=== PATIENT | female | born 1975 | race Caucasian/White ===

== ENCOUNTER 2024-10-09 17:26 | Emergency (ER) | payer BC, SELFPAY ==
[2024-10-09] VITALS (11 sets, daily range): BP systolic 133; BP diastolic 87; PULSE 54–98; RESP 18; TEMP 37.3; O2SAT 95–100; BMI 28.3
--- NOTE | 2024-10-09 19:21 | ED.NAVMDI ---
HPI - Nausea/Vomiting/Diarrhea General Date Seen: 10/09/24 <Clyde Barnes MD - Last Filed: 10/11/24 21:41> Chief complaint: Nausea/Vomiting <Clyde Barnes MD - Last Filed: 10/11/24 21:41> Stated complaint: Vomiting, diarrhea, dehydration <Clyde Barnes MD - Last Filed: 10/11/24 21:41> Time Seen by Provider: 10/09/24 19:13 <Clyde Barnes MD - Last Filed: 10/11/24 21:41> Source: patient <Clyde Barnes MD - Last Filed: 10/11/24 21:41> Mode of arrival: ambulatory <Clyde Barnes MD - Last Filed: 10/11/24 21:41> Limitations: no limitations <Clyde Barnes MD - Last Filed: 10/11/24 21:41> History of Present Illness HPI Narrative: Patient is very nice 49-year-old female who presents here with 6 days of nausea vomiting and diarrhea she has had a probably 12 episodes today of retching with vomiting, reports that she has had it least 4-5 loose stools also, no blood in either the retching or the stools, no coffee-grounds, she has tried some Aleve at home but is really not tried anything else, she was going to try to go home to [place] because she was feeling so ill, but then drove in here. Denies use of any drugs, such as cannabis, methamphetamines, or alcohol. Denies a history of fevers chills or sweats, coughing cold-like symptoms sore throat, headache visual changes, rashes, or other history no other contacts have been sick. She has not traveled and she has no exotic pets. Hysterectomy, knee arthroscopy, shoulder surgery, She does have a history of previous gastric bypass in the remote past. <Clyde Barnes MD - Last Filed: 10/11/24 21:41> MD elicited complaint: nausea, vomiting and diarrhea <Clyde Barnes MD - Last Filed: 10/11/24 21:41> Description of vomiting: watery and bilious <Clyde Barnes MD - Last Filed: 10/11/24 21:41> Description of diarrhea: watery <Clyde Barnes MD - Last Filed: 10/11/24 21:41> Related Data Home medications: Home Medications ?Medication ?Instructions ?Recorded ?Confirmed No Known Home Medications 10/09/24 10/09/24 <Clyde Barnes MD - Last Filed: 10/11/24 21:41> Allergies/Adverse reactions: Allergies Allergy/AdvReac Type Severity Reaction Status Date / Time No Known Drug Allergies Allergy Verified 10/09/24 21:21 <Clyde Barnes MD - Last Filed: 10/11/24 21:41> Review of Systems Status of ROS: Reports: 10 or more systems reviewed and unremarkable except as noted in History and below <Clyde Barnes MD - Last Filed: 10/11/24 21:41> PFSH PFSH Social History: Social History Smoking Status: Never smoker How often do you have a drink containing alcohol: never AUDIT-C Alcohol total score: 0 Non-prescribed substance use: denies use <Clyde Barnes MD - Last Filed: 10/11/24 21:41> Exam Narrative: Exam Narrative: On examination she is in no apparent distress vital signs are stable, she is nontoxic smiling to me in room 2. Her pupils are equal round reactive to light there is no scleral icterus redness her TMs are normal her oropharynx is a little dry, but otherwise normal with normal mouth opening there is no meningismus, her chest is good air entry bilaterally no wheezing crackles noted her heart sounds are normal her abdomen, shows some mild tenderness on deep palpation over the left side of her abdomen. There is no distention noted, bowel sounds are quiet, no tenderness is significantly noted, she has no peritoneal signs no CVA tenderness she moves all extremities independently well skin reveals no petechiae rashes she has a little bit of a doughy nature to her skin. <Clyde Barnes MD - Last Filed: 10/11/24 21:41> Const: Vital Signs, click to edit/add: Vital Signs - 24 hr 10/09/24 18:04 10/09/24 21:05 10/09/24 21:17 Temperature 99.2 F Pulse Rate 55 L 80 Pulse Rate [Right Pulse Oximeter] 98 Respiratory Rate 18 Blood Pressure [Ri ght Upper Arm] 133/87 Pulse Oximetry 98 97 98 Oxygen Delivery Me thod Room Air 10/09/24 21:30 10/09/24 21:45 10/09/24 22:00 Temperature Pulse Rate 54 L 54 L 56 L Pulse Rate [Right Pulse Oximeter] Respiratory Rate Blood Pressure [Ri ght Upper Arm] Pulse Oximetry 100 98 96 Oxygen Delivery Me thod 10/09/24 22:15 10/09/24 22:30 10/09/24 22:45 Temperature Pulse Rate 71 69 55 L Pulse Rate [Right Pulse Oximeter] Respiratory Rate Blood Pressure [Ri ght Upper Arm] Pulse Oximetry 95 99 99 Oxygen Delivery Me thod 10/09/24 23:00 10/09/24 23:15 Temperature Pulse Rate 55 L 57 L Pulse Rate [Right Pulse Oximeter] Respiratory Rate Blood Pressure [Ri ght Upper Arm] Pulse Oximetry 99 98 Oxygen Delivery Me thod <Clyde Barnes MD - Last Filed: 10/11/24 21:41> Vital Signs, click to edit/add: Vital Signs - 24 hr 10/09/24 18:04 10/09/24 21:05 10/09/24 21:17 Temperature 99.2 F Pulse Rate 55 L 80 Pulse Rate [Right Pulse Oximeter] 98 Respiratory Rate 18 Blood Pressure [Ri ght Upper Arm] 133/87 Pulse Oximetry 98 97 98 Oxygen Delivery Me thod Room Air 10/09/24 21:30 10/09/24 21:45 10/09/24 22:00 Temperature Pulse Rate 54 L 54 L 56 L Pulse Rate [Right Pulse Oximeter] Respiratory Rate Blood Pressure [Ri ght Upper Arm] Pulse Oximetry 100 98 96 Oxygen Delivery Me thod 10/09/24 22:15 10/09/24 22:30 10/09/24 22:45 Temperature Pulse Rate 71 69 55 L Pulse Rate [Right Pulse Oximeter] Respiratory Rate Blood Pressure [Ri ght Upper Arm] Pulse Oximetry 95 99 99 Oxygen Delivery Me thod 10/09/24 23:00 10/09/24 23:15 Temperature Pulse Rate 55 L 57 L Pulse Rate [Right Pulse Oximeter] Respiratory Rate Blood Pressure [Ri ght Upper Arm] Pulse Oximetry 99 98 Oxygen Delivery Me thod <Sidra Anne MD - Last Filed: 10/09/24 23:59> Documenting provider has reviewed patient's vital signs: yes <Clyde Barnes MD - Last Filed: 10/11/24 21:41> Course Reevaluation(s) Time of Reevaluation #1: 20:34 <Clyde Barnes MD - Last Filed: 10/11/24 21:41> Reevaluation #1: I went back in and saw the patient, discussed with her that her pain is not a lot better on examination she has epigastric left-sided discomfort I think a CT scan would be in order we will give her some Protonix, and also a little bit of morphine. Her amylase was slightly elevated which is nonspecific but her lipase was normal, white blood cell count hemoglobin are normal, LFTs were normal, and her BUN was slightly elevated that goes with her being dry. I will sign her over to my partner for further definitive treatment. <Clyde Barnes MD - Last Filed: 10/11/24 21:41> Time of Reevaluation #2: 22:30 <Sidra Anne MD - Last Filed: 10/09/24 23:59> Reevaluation #2: I Reviewed urinalysis which demonstrates no evidence of acute infection. I personally reviewed and interpreted CT of the abdomen and pelvis which demonstrates no acute intra-abdominal infection/process. I discussed results with patient. Overall patient does report improvement in her symptoms but still has ongoing nausea. Plan to repeat the Zofran, p.o. challenge. <Sidra Anne MD - Last Filed: 10/09/24 23:59> Time of Reevaluation #3: 23:56 <Sidra Anne MD - Last Filed: 10/09/24 23:59> Reevaluation #3: On re-evaluation patient reports significant improvement of her symptoms, no further episodes of nausea, vomiting. Patient requesting for discharge home. Plan for discharge home with continued supportive care, prescription for Zofran provided. Encouraged close outpatient follow-up with strict return precautions discussed. Patient understands and agrees the plan. <Sidra Anne MD - Last Filed: 10/09/24 23:59> Vital Signs Vital signs: Initial Vital Signs Temperature 99.2 F 10/09/24 18:04 Temperature Source Temporal Artery Scan 10/09/24 18:04 Pulse Rate 98 10/09/24 18:04 Pulse Rhythm Regular 10/09/24 18:04 Pulse Strength 3+ Normal 10/09/24 18:04 Respiratory Rate 18 10/09/24 18:04 Blood Pressure 133/87 10/09/24 18:04 Blood Pressure Mean 102 10/09/24 18:04 Blood Pressure Position Sitting 10/09/24 18:04 Pulse Oximetry 98 10/09/24 18:04 Oxygen Delivery Method Room Air 10/09/24 18:04 Vital Signs Temperature 99.2 F 10/09/24 18:04 Pulse Rate 98 10/09/24 18:04 Respiratory Rate 18 10/09/24 18:04 Blood Pressure 133/87 10/09/24 18:04 Pulse Oximetry 98 10/09/24 18:04 Oxygen Delivery Method Room Air 10/09/24 18:04 Temperature 99.2 F 10/09/24 18:04 Pulse Rate 57 L 10/09/24 23:15 Respiratory Rate 18 10/09/24 18:04 Blood Pressure 133/87 10/09/24 18:04 Pulse Oximetry 98 10/09/24 23:15 Oxygen Delivery Method Room Air 10/09/24 18:04 <Clyde Barnes MD - Last Filed: 10/11/24 21:41> Initial Vital Signs Temperature 99.2 F 10/09/24 18:04 Temperature Source Temporal Artery Scan 10/09/24 18:04 Pulse Rate 98 10/09/24 18:04 Pulse Rhythm Regular 10/09/24 18:04 Pulse Strength 3+ Normal 10/09/24 18:04 Respiratory Rate 18 10/09/24 18:04 Blood Pressure 133/87 10/09/24 18:04 Blood Pressure Mean 102 10/09/24 18:04 Blood Pressure Position Sitting 10/09/24 18:04 Pulse Oximetry 98 10/09/24 18:04 Oxygen Delivery Method Room Air 10/09/24 18:04 Vital Signs Temperature 99.2 F 10/09/24 18:04 Pulse Rate 98 10/09/24 18:04 Respiratory Rate 18 10/09/24 18:04 Blood Pressure 133/87 10/09/24 18:04 Pulse Oximetry 98 10/09/24 18:04 Oxygen Delivery Method Room Air 10/09/24 18:04 Temperature 99.2 F 10/09/24 18:04 Pulse Rate 57 L 10/09/24 23:15 Respiratory Rate 18 10/09/24 18:04 Blood Pressure 133/87 10/09/24 18:04 Pulse Oximetry 98 10/09/24 23:15 Oxygen Delivery Method Room Air 10/09/24 18:04 <Sidra Anne MD - Last Filed: 10/09/24 23:59> Medications Administered Medications: Discontinued Medications Generic Name Dose Route Start Last Admin Trade Name Freq PRN Reason Stop Dose Admin Sodium Chloride 1,000 mls @ 1,000 mls/hr 10/09/24 19:30 10/09/24 20:31 0.9 % Sodium Chloride 1000 Ml IV 10/09/24 20:29 Infused .Q1H MICHAEL Infusion Sodium Chloride 1,000 mls @ 1,000 mls/hr 10/09/24 19:30 10/09/24 21:40 0.9 % Sodium Chloride 1000 Ml IV 10/09/24 20:29 Infused .Q1H MICHAEL Infusion Morphine Sulfate 2 mg 10/09/24 20:32 10/09/24 20:47 Morphine 2 Mg/Ml Inj IVP 10/09/24 20:33 2 mg ONCE ONE Administration Ondansetron HCl 4 mg 10/09/24 19:18 10/09/24 19:52 Ondansetron 2 Mg/Ml Inj IVP 10/09/24 19:19 4 mg ONCE ONE Administration Ondansetron HCl 4 mg 10/09/24 22:36 10/09/24 22:41 Ondansetron 2 Mg/Ml Inj IVP 10/09/24 22:37 4 mg ONCE ONE Administration Pantoprazole Sodium 40 mg 10/09/24 20:33 10/09/24 20:50 Pantoprazole Sodium 40 Mg Inj IVP 10/09/24 20:34 40 mg ONCE ONE Administration <Clyde Barnes MD - Last Filed: 10/11/24 21:41> Discontinued Medications Generic Name Dose Route Start Last Admin Trade Name Freq PRN Reason Stop Dose Admin Sodium Chloride 1,000 mls @ 1,000 mls/hr 10/09/24 19:30 10/09/24 20:31 0.9 % Sodium Chloride 1000 Ml IV 10/09/24 20:29 Infused .Q1H MICHAEL Infusion Sodium Chloride 1,000 mls @ 1,000 mls/hr 10/09/24 19:30 10/09/24 21:40 0.9 % Sodium Chloride 1000 Ml IV 10/09/24 20:29 Infused .Q1H MICHAEL Infusion Morphine Sulfate 2 mg 10/09/24 20:32 10/09/24 20:47 Morphine 2 Mg/Ml Inj IVP 10/09/24 20:33 2 mg ONCE ONE Administration Ondansetron HCl 4 mg 10/09/24 19:18 10/09/24 19:52 Ondansetron 2 Mg/Ml Inj IVP 10/09/24 19:19 4 mg ONCE ONE Administration Ondansetron HCl 4 mg 10/09/24 22:36 10/09/24 22:41 Ondansetron 2 Mg/Ml Inj IVP 10/09/24 22:37 4 mg ONCE ONE Administration Pantoprazole Sodium 40 mg 10/09/24 20:33 10/09/24 20:50 Pantoprazole Sodium 40 Mg Inj IVP 10/09/24 20:34 40 mg ONCE ONE Administration <Sidra Anne MD - Last Filed: 10/09/24 23:59> MDM - Nausea/Vomiting/Diarrhea MDM Narrative Medical decision making narrative: Differential diagnosis includes but is not limited to viral gastroenteritis, drug food poisoning, pyloric stenosis, gastritis, pancreatitis, hepatitis, cholecystitis, appendicitis, bowel obstruction, hyperemesis, cyclic vomiting syndrome, bulimia nervosa, migraine headache, motion sickness and medication side effect. These include the life threatening complications of appendicitis, drug food poisoning and bowel obstruction. Differential diagnosis considered include but not limited to viral gastroenteritis, food poisoning, bowel obstruction, Clostridium difficile, Campylobacter, Shigella, rotavirus, medication side effects, dysentery, diverticulitis, Crohn's disease and colitis <Clyde Barnes MD - Last Filed: 10/11/24 21:41> Medical Records Attestation: I reviewed the patient's medical records. <Clyde Barnes MD - Last Filed: 10/11/24 21:41> Lab Data Labs: Lab Results 10/09/24 10/09/24 Range/Units 19:40 21:40 WBC 6.85 (4.50-11.00) K/uL RBC 5.23 H (4.00-5.20) m/uL Hgb 14.3 (12.0-16.0) gm/dL Hct 42.8 (33.0-51.0) % MCV 82 (80-100) fL MCH 27 (26-34) pg MCHC 33 (32-36) gm/dL RDW Coeff of Pam 12.3 (11.5-15.5) % Plt Count 237 (140-440) K/uL Neut % (Auto) 77.4 H (42.0-72.0) % Lymph % (Auto) 14.9 L (20-44) % [place] % (Auto) 7.2 (0.0-11.0) % Eos % (Auto) 0.0 (0.0-7.0) % Baso % (Auto) 0.4 (0.0-3.0) % Neut # (Auto) 5.30 (1.7-7.0) K/uL Lymph # (Auto) 1.00 (0.90-2.90) K/uL [place] # (Auto) 0.50 (0.00-0.90) K/UL Eos # (Auto) 0.00 (0.00-0.50) K/uL Baso # (Auto) 0.03 (0.00-0.30) K/uL Abs Immat Gran (auto) 0.01 (0.00-0.30) K/uL Imm/Tot Granulo (auto) 0.1 % Sodium 138 (135-149) mmol/L Potassium 3.0 L (3.6-5.1) mmol/L Chloride 102 (96-114) mmol/L Carbon Dioxide 27 (20-32) mmol/L Anion Gap 9 (7-15) mEq/L BUN 25 H (5-24) mg/dL Creatinine 0.9 (0.5-1.5) mg/dL Estimated Creat Clear 59.80 Estimated GFR 78 ml/min Glucose 102 (60-115) mg/dL Lactate 1.0 (0.5-1.9) mmol/L Calcium 8.7 (8.4-10.6) mg/dL Total Bilirubin 0.6 (0.1-1.5) mg/dL Direct Bilirubin 0.4 (0.0-0.5) mg/dL AST 32 (12-35) U/L ALT 23 (4-35) U/L Alkaline Phosphatase 64 (40-150) U/L C-Reactive Protein < 0.5 L (0.5-1.0) mg/dL Total Protein 7.3 (6.0-8.3) g/dL Albumin 4.4 (3.3-5.0) g/dL Amylase 161 H (18-89) U/L Lipase 165 (23-300) U/L Urine Color Yellow (Yellow) Urine Appearance Clear (Clear) Urine pH 6.0 (5.0-8.5) Ur Specific [place] 1.020 (1.000-1.030) Urine Protein Trace A (Negative) Urine Glucose (UA) Negative (Negative) Urine Ketones 2+ A (Negative) Urine Blood 2+ A (Negative) Urine Nitrite Negative (Negative) Urine Bilirubin Negative (Negative) Urine Urobilinogen 0.2 (0.2-1.0) Ur Leukocyte Esterase Negative (Negative) Urine RBC 5-10 A (0-2) Urine WBC 2-5 (0-5) Ur Squamous Epith Cells None (None-Few) Urine Bacteria None (None) Ethyl Alcohol < 0.01 (0.01-0.03) % <Clyde Barnes MD - Last Filed: 10/11/24 21:41> Lab Results 10/09/24 10/09/24 Range/Units 19:40 21:40 WBC 6.85 (4.50-11.00) K/uL RBC 5.23 H (4.00-5.20) m/uL Hgb 14.3 (12.0-16.0) gm/dL Hct 42.8 (33.0-51.0) % MCV 82 (80-100) fL MCH 27 (26-34) pg MCHC 33 (32-36) gm/dL RDW Coeff of Pam 12.3 (11.5-15.5) % Plt Count 237 (140-440) K/uL Neut % (Auto) 77.4 H (42.0-72.0) % Lymph % (Auto) 14.9 L (20-44) % [place] % (Auto) 7.2 (0.0-11.0) % Eos % (Auto) 0.0 (0.0-7.0) % Baso % (Auto) 0.4 (0.0-3.0) % Neut # (Auto) 5.30 (1.7-7.0) K/uL Lymph # (Auto) 1.00 (0.90-2.90) K/uL [place] # (Auto) 0.50 (0.00-0.90) K/UL Eos # (Auto) 0.00 (0.00-0.50) K/uL Baso # (Auto) 0.03 (0.00-0.30) K/uL Abs Immat Gran (auto) 0.01 (0.00-0.30) K/uL Imm/Tot Granulo (auto) 0.1 % Sodium 138 (135-149) mmol/L Potassium 3.0 L (3.6-5.1) mmol/L Chloride 102 (96-114) mmol/L Carbon Dioxide 27 (20-32) mmol/L Anion Gap 9 (7-15) mEq/L BUN 25 H (5-24) mg/dL Creatinine 0.9 (0.5-1.5) mg/dL Estimated Creat Clear 59.80 Estimated GFR 78 ml/min Glucose 102 (60-115) mg/dL Lactate 1.0 (0.5-1.9) mmol/L Calcium 8.7 (8.4-10.6) mg/dL Total Bilirubin 0.6 (0.1-1.5) mg/dL Direct Bilirubin 0.4 (0.0-0.5) mg/dL AST 32 (12-35) U/L ALT 23 (4-35) U/L Alkaline Phosphatase 64 (40-150) U/L C-Reactive Protein < 0.5 L (0.5-1.0) mg/dL Total Protein 7.3 (6.0-8.3) g/dL Albumin 4.4 (3.3-5.0) g/dL Amylase 161 H (18-89) U/L Lipase 165 (23-300) U/L Urine Color Yellow (Yellow) Urine Appearance Clear (Clear) Urine pH 6.0 (5.0-8.5) Ur Specific [place] 1.020 (1.000-1.030) Urine Protein Trace A (Negative) Urine Glucose (UA) Negative (Negative) Urine Ketones 2+ A (Negative) Urine Blood 2+ A (Negative) Urine Nitrite Negative (Negative) Urine Bilirubin Negative (Negative) Urine Urobilinogen 0.2 (0.2-1.0) Ur Leukocyte Esterase Negative (Negative) Urine RBC 5-10 A (0-2) Urine WBC 2-5 (0-5) Ur Squamous Epith Cells None (None-Few) Urine Bacteria None (None) Ethyl Alcohol < 0.01 (0.01-0.03) % <Sidra Anne MD - Last Filed: 10/09/24 23:59> Discharge Plan Discharge Clinical Impression: Abdominal pain, Nausea & vomiting <Clyde Barnes MD - Last Filed: 10/11/24 21:41> Patient Disposition: Home, Self-Care <Clyde Barnes MD - Last Filed: 10/11/24 21:41> Condition: Improved <Clyde Barnes MD - Last Filed: 10/11/24 21:41> Additional Instructions: Please follow up with your primary care provider in the next 3-5 days for further evaluation and follow-up. Please call to schedule an appointment. Please take Zofran as needed for nausea, vomiting. Please rest, drink plenty of fluids. Please take Tylenol or ibuprofen every 6 hours as needed for pain. Please return to the emergency department if you develop persistent high fever, severe pain, persistent vomiting, or any worsening symptoms. It was a pleasure taking care of you today. I hope you feel better soon. <Clyde Barnes MD - Last Filed: 10/11/24 21:41> Prescriptions: No Action No Known Home Medications <Clyde Barnes MD - Last Filed: 10/11/24 21:41> Follow Up/Referrals: Provider,Not a Local [Primary Care Provider] - <Clyde Barnes MD - Last Filed: 10/11/24 21:41> Stand Alone Forms: MyHealth Info Instructions <Clyde Barnes MD - Last Filed: 10/11/24 21:41>
[2024-10-09 19:48] LABS: Basophils Absolute Auto 0.03 K/uL (0.00-0.30); Basophils Percent Auto 0.4 % (0.0-3.0); Hematocrit 42.8 % (33.0-51.0); Hemoglobin* 14.3 gm/dL (12.0-16.0); Immature Granulocytes Abs Auto 0.01 K/uL (0.00-0.30); Immature Granulocytes Pct Auto 0.1 %; Lymphocytes Percent Auto 14.9 % (20-44); Mean Corpuscular HGB Conc 33 gm/dL (32-36); Mean Corpuscular Hemoglobin 27 pg (26-34); Mean Corpuscular Volume 82 fL (80-100); Monocytes Percent Auto 7.2 % (0.0-11.0); Neutrophils Percent Auto 77.4 % (42.0-72.0); Platelet Count* 237 K/uL (140-440); RDW Coefficient of Variation % 12.3 % (11.5-15.5); Red Blood Count 5.23 m/uL (4.00-5.20); White Blood Count* 6.85 K/uL (4.50-11.00)
[2024-10-09 19:50] LABS: Slide Review Reflex No
[2024-10-09] MEDS: 0.9 % SODIUM CHLORIDE 1000 ml 1,000 ML IV ×2 (19:52→20:31)
[2024-10-09] MEDS: ONDANSETRON 2 MG/ML inj 4 MG IVP ×2 (19:52→22:41)
[2024-10-09 19:57] LABS: Albumin* 4.4 g/dL (3.3-5.0); Chloride* 102 mmol/L (96-114); Sodium* 138 mmol/L (135-149)
[2024-10-09 20:00] LABS: Amylase* 161 U/L (18-89); Anion Gap 9 mEq/L (7-15); Blood Urea Nitrogen* 25 mg/dL (5-24); Carbon Dioxide* 27 mmol/L (20-32); Creatinine* 0.9 mg/dL (0.5-1.5); Estimated Glomerular Filt Rate 78 ml/min
[2024-10-09 20:01] LABS: Alanine Aminotransferase* 23 U/L (4-35); Alkaline Phosphatase* 64 U/L (40-150); Aspartate Amino Transferase* 32 U/L (12-35); Bilirubin Direct* 0.4 mg/dL (0.0-0.5); Bilirubin Total* 0.6 mg/dL (0.1-1.5); Calcium* 8.7 mg/dL (8.4-10.6); Glucose* 102 mg/dL (60-115); Lipase* 165 U/L (23-300); Total Protein* 7.3 g/dL (6.0-8.3)
[2024-10-09 20:04] LABS: C Reactive Protein* < 0.5 mg/dL (0.5-1.0); Ethanol* < 0.01 % (0.01-0.03)
--- NOTE | 2024-10-09 20:33 | CRLHL7_ITS ---
For Patients: As a result of the Century Cures Act, medical imaging exams and procedure reports are released immediately into your electronic medical record. You may view this report before your referring provider. If you have questions, please contact your health care provider. INDICATION: Left-sided epigastric pain, history of gastric bypass. TECHNIQUE: CT abdomen and pelvis acquired with 76 cc of Isovue 370 IV contrast. COMPARISON: None. FINDINGS: Lower chest: Unremarkable. Liver: Unremarkable. Normal in size and attenuation. No suspicious masses. Gallbladder and bile ducts: Unremarkable. No stones or inflammation. No biliary dilatation. Pancreas: Unremarkable. No mass or inflammation. Spleen: Unremarkable. Normal in size. No masses. Adrenal glands: Unremarkable. No nodules. Kidneys: Unremarkable. No suspicious masses, stones, or hydronephrosis. GI tract: Small hiatal hernia. Prior Freya-en-Y gastric bypass surgery. No bowel obstruction normal appendix. Vasculature: Abdominal aorta is normal in caliber. Mesenteric arteries are patent. Lymph nodes: No lymphadenopathy. Peritoneum/Abdominal Wall: Unremarkable. No free air or significant free fluid. Pelvis: Unremarkable. Bones: Unremarkable for age. IMPRESSION: 1. Prior Freya-en-Y gastric bypass. No bowel obstruction. 2. Small hiatal hernia. 3. No acute findings within the abdomen and pelvis. Please note that all CT scans at this facility use dose modulation, iterative reconstruction, and/or weight-based dosing when appropriate to reduce radiation dose to as low as reasonably achievable. Dictated by Laith Mc MD @ 10/09/2024 9:35:40 PM (Electronically Signed)
[2024-10-09] MEDS: MORPHINE 2 MG/ML inj IVP (20:47)
[2024-10-09] MEDS: PANTOPRAZOLE SODIUM 40 MG INJ IVP (20:50)
[2024-10-09 21:50] LABS: Appearance Urine Clear (Clear); Bilirubin Urine Negative (Negative); Blood Urine 2+ (Negative); Color Urine Yellow (Yellow); Glucose Urine Negative (Negative); Ketones Urine 2+ (Negative); Leukocyte Esterase Urine Negative (Negative); Nitrite Urine Negative (Negative); Protein Urine Trace (Negative); Urobilinogen Urine 0.2 (0.2-1.0)
== END 2024-10-10 00:08 | disposition home or self-care (01) ==
PROVIDERS: Emergency Provider Family Medicine
DX: R11.2 Nausea with vomiting, unspecified (principal); R10.9 Unspecified abdominal pain
CPT/HCPCS: 36415; 74177; 80048; 80076; 81001; 82077; 82150; 83605; 83690; 85025; 86140; 96374; 96375; 99284; J2270; J2405; J2470; J7030; Q9967